=== PATIENT | male | born 1960 | race Two or more races ===

== ENCOUNTER 2018-10-06 02:24 | Emergency (ER) | payer MEDICAID, OTHER ==
[~2018-10-06] VITALS: Ht 180.3 cm; Wt 131.5 kg
[2018-10-06 02:54] VITALS: BP 156/90
[2018-10-06] MEDS ORDERED: ALBUTEROL SULF 2.5 MG/0.5ML(0.5%) NEB SOLN NEB ONE (03:15)
[2018-10-06] MEDS ORDERED: IPRATROPIUM BROM 0.5 MG/2.5ML INH SOL NEB ONE (03:15)
== END 2018-10-06 04:49 | disposition home or self-care (01) ==
LOC: ER 02:33
DX: J40 Bronchitis, not specified as acute or chronic (principal)
CPT/HCPCS: 71045; 94640; 99283; J7611; J7644

== ENCOUNTER 2019-03-02 07:43 | Emergency (ER) | payer SELFPAY ==
[~2019-03-02] VITALS: Ht 177.8 cm; Wt 131.5 kg
[2019-03-02 08:18] LABS: Basophils # (auto) 0.1 uL; Basophils % (auto) 1.1 % (0.0-2.0); Eosinophils # (auto) 0.1 uL; Eosinophils % (auto) 2.3 % (0.0-7.0); Hematocrit 45.1 % (41.0-53.0); Hemoglobin 15.4 g/dL (13.5-17.5); Lymphocytes # (auto) 1.9 uL; Lymphocytes % (auto) 29.2 % (10.0-50.0); Mean Corpuscular Hemoglobin 30.9 pg (28.0-32.0); Mean Corpuscular Hgb Conc. 34.2 g/dL (32.0-36.0); Mean Corpuscular Volume 90.6 fL (80.0-100.0); Monocytes # (auto) 0.5 uL; Monocytes % (auto) 8.4 % (0.0-12.0); Neutrophils # (auto) 3.8 uL; Nucleated Red Blood Cells % 0.1 %; Platelet Count (auto) 257 10^3/uL (140-450); Red Blood Cells 4.98 10^6/uL (4.5-5.90); Red Cell Distribution Width 13.8 % (11.8-14.3); White Blood Cell 6.4 10^3/uL (4.4-10.8)
[2019-03-02 08:41] LABS: Alanine Aminotransferase 37 U/L (16-61); Albumin 3.6 g/dL (3.4-5.0); Anion Gap 6 (5-15); Aspartate Aminotransferase 20 U/L (15-37); BUN/Creatinine Ratio 19.2; Blood Urea Nitrogen 15 mg/dL (7-18); Calcium 8.5 mg/dL (8.5-10.1); Carbon Dioxide 28 mmol/L (21-32); Chloride 106 mmol/L (98-107); GFR African American 132 mL/min; GFR Non-African American 109 mL/min; Glucose 114 mg/dL (74-106); Potassium 3.3 mmol/L (3.5-5.1); Sodium 140 mmol/L (136-145)
[2019-03-02 08:49] LABS: Urine Bacteria NONE SEEN /hpf (None Seen); Urine Blood Negative /uL (Negative); Urine Specific Gravity 1.019 (1.001-1.035); Urine WBC 1 /hpf (0 - 3)
[2019-03-02 08:51] LABS: Alkaline Phosphatase 98 U/L (45-117); Bilirubin, Total 0.8 mg/dL (0.2-1.0); Total Protein 7.5 g/dL (6.4-8.2)
[2019-03-02] MEDS ORDERED: KETOROLAC TROMETH 60MG/2ML VIAL IM ONE (09:00)
[2019-03-02] MEDS ORDERED: PANTOPRAZOLE 40 MG TAB PO ONE (09:15)
[2019-03-02 10:47] VITALS: BP 140/58
[2019-03-02] MEDS ORDERED: POTASSIUM CHL 10% (20 MEQ/15ML) 15ml ORAL SOLN PO ONE (11:00)
== END 2019-03-02 11:23 | disposition home or self-care (01) ==
LOC: ER 07:43
DX: K29.70 Gastritis, unspecified, without bleeding (principal); E87.6 Hypokalemia; E11.9 Type 2 diabetes mellitus without complications; I10 Essential (primary) hypertension
CPT/HCPCS: 36415; 74176; 80053; 81001; 84484; 85025; 93005; 99284; J1885

== ENCOUNTER 2020-01-08 06:49 | Emergency (ER) | payer MEDICAID ==
[~2020-01-08] VITALS: Ht 180.3 cm; Wt 126.1 kg
[2020-01-08 07:36] VITALS: BP 127/67
== END 2020-01-08 08:04 | disposition home or self-care (01) ==
LOC: ER 06:49
DX: J06.9 Acute upper respiratory infection, unspecified (principal); E11.9 Type 2 diabetes mellitus without complications; I10 Essential (primary) hypertension
CPT/HCPCS: 71046

== ENCOUNTER 2020-04-05 21:14 | Emergency (ER) | payer MEDICAID ==
[~2020-04-05] VITALS: Ht 180.3 cm; Wt 131.1 kg
[2020-04-06 00:44] VITALS: BP 139/74
== END 2020-04-06 00:56 | disposition home or self-care (01) ==
LOC: ER 21:15
DX: S00.03XA Contusion of scalp, initial encounter (principal); M47.812 Spondylosis without myelopathy or radiculopathy, cervical region; I10 Essential (primary) hypertension; E11.9 Type 2 diabetes mellitus without complications; X58.XXXA Exposure to other specified factors, initial encounter; Y93.89 Activity, other specified; Y99.8 Other external cause status; Y92.89 Other specified places as the place of occurrence of the external cause
CPT/HCPCS: 70450; 72125

== ENCOUNTER 2021-01-26 11:18 | Emergency (ER) | payer MEDICAID ==
[~2021-01-26] VITALS: Ht 180.3 cm; Wt 127.0 kg
[2021-01-26] MEDS ORDERED: ASPirin 81 mg TAB PO ONE (12:15)
[2021-01-26 12:29] LABS: Basophils # (auto) 0.1 10 ^3/uL (0-0.2); Basophils % (auto) 0.9 % (0.0-2.0); Eosinophils # (auto) 0.2 10 ^3/uL (0-0.8); Eosinophils % (auto) 3.4 % (0.0-7.0); Hematocrit 43.7 % (41.0-53.0); Hemoglobin 14.9 g/dL (13.5-17.5); Lymphocytes # (auto) 2.2 10 ^3/uL (0.4-5.4); Lymphocytes % (auto) 30.8 % (10.0-50.0); Mean Corpuscular Hemoglobin 31.5 pg (28.0-32.0); Mean Corpuscular Hgb Conc. 34.2 g/dL (32.0-36.0); Mean Corpuscular Volume 92.2 fL (80.0-100.0); Monocytes # (auto) 0.6 10 ^3/uL (0-1.3); Monocytes % (auto) 7.8 % (0.0-12.0); Neutrophils # (auto) 4.1 10 ^3/uL (1.6-8.6); Neutrophils % (auto) 57.1 % (37.0-80.0); Nucleated Red Blood Cells % 0.1 %; Platelet Count (auto) 260 10^3/uL (140-450); Red Blood Cells 4.74 10^6/uL (4.5-5.90); Red Cell Distribution Width 13.5 % (11.8-14.3); White Blood Cell 7.2 10^3/uL (4.4-10.8)
[2021-01-26 12:48] LABS: Albumin 3.8 g/dL (3.4-5.0); Anion Gap 1 (5-15); Blood Urea Nitrogen 14 mg/dL (7-18); Carbon Dioxide 30 mmol/L (21-32); Chloride 110 mmol/L (98-107); Glucose 89 mg/dL (74-106); Sodium 141 mmol/L (136-145)
[2021-01-26 12:53] LABS: Alanine Aminotransferase 44 U/L (16-61); Alkaline Phosphatase 85 U/L (45-117); Aspartate Aminotransferase 20 U/L (15-37); BUN/Creatinine Ratio 17.9; Bilirubin, Total 0.4 mg/dL (0.2-1.0); GFR African American 131 mL/min; GFR Non-African American 109 mL/min; Total Protein 7.5 g/dL (6.4-8.2)
[2021-01-26 13:09] LABS: INR 0.95 (0.9-1.15); Partial Thromboplastin Time 27.2 sec (23.0-31.2)
[2021-01-26 14:52] VITALS: BP 133/78
== END 2021-01-26 16:40 | disposition home or self-care (01) ==
LOC: ER 11:18
DX: R07.89 Other chest pain (principal); K29.70 Gastritis, unspecified, without bleeding; E11.9 Type 2 diabetes mellitus without complications; I10 Essential (primary) hypertension
CPT/HCPCS: 36415; 71045; 80053; 83735; 84443; 84484; 85025; 85379; 85610; 85730; 93005

== ENCOUNTER 2021-02-10 11:25 | Emergency (ER) | payer MEDICAID ==
[~2021-02-10] VITALS: Ht 180.3 cm; Wt 127.0 kg
[2021-02-10] MEDS ORDERED: ASPirin 81 mg TAB PO ONE (11:45)
[2021-02-10 12:20] LABS: Basophils # (auto) 0 10 ^3/uL (0-0.2); Basophils % (auto) 0.3 % (0.0-2.0); Eosinophils # (auto) 0.2 10 ^3/uL (0-0.8); Eosinophils % (auto) 2.6 % (0.0-7.0); Hematocrit 43.5 % (41.0-53.0); Hemoglobin 15.1 g/dL (13.5-17.5); Lymphocytes # (auto) 2.2 10 ^3/uL (0.4-5.4); Lymphocytes % (auto) 28.9 % (10.0-50.0); Mean Corpuscular Hemoglobin 31.5 pg (28.0-32.0); Mean Corpuscular Hgb Conc. 34.8 g/dL (32.0-36.0); Mean Corpuscular Volume 90.5 fL (80.0-100.0); Monocytes # (auto) 0.6 10 ^3/uL (0-1.3); Monocytes % (auto) 7.3 % (0.0-12.0); Neutrophils # (auto) 4.7 10 ^3/uL (1.6-8.6); Neutrophils % (auto) 60.9 % (37.0-80.0); Nucleated Red Blood Cells % 0.1 %; Platelet Count (auto) 258 10^3/uL (140-450); Red Blood Cells 4.81 10^6/uL (4.5-5.90); Red Cell Distribution Width 13.4 % (11.8-14.3); White Blood Cell 7.7 10^3/uL (4.4-10.8)
[2021-02-10 12:39] LABS: Albumin 3.5 g/dL (3.4-5.0); Anion Gap 6 (5-15); Blood Urea Nitrogen 9 mg/dL (7-18); Calcium 8.7 mg/dL (8.5-10.1); Carbon Dioxide 28 mmol/L (21-32); Chloride 105 mmol/L (98-107); Glucose 162 mg/dL (74-106); Magnesium 2.1 mg/dL (1.6-2.6); Potassium 3.7 mmol/L (3.5-5.1); Sodium 139 mmol/L (136-145)
[2021-02-10 12:46] LABS: Alanine Aminotransferase 40 U/L (16-61); Alkaline Phosphatase 93 U/L (45-117); Aspartate Aminotransferase 18 U/L (15-37); Bilirubin, Total 0.6 mg/dL (0.2-1.0); GFR African American 151 mL/min; GFR Non-African American 125 mL/min; Total Protein 7.3 g/dL (6.4-8.2)
[2021-02-10 14:29] VITALS: BP 124/54
== END 2021-02-10 14:41 | disposition home or self-care (01) ==
LOC: ER 11:25
DX: R07.89 Other chest pain (principal); E11.9 Type 2 diabetes mellitus without complications; I10 Essential (primary) hypertension
CPT/HCPCS: 36415; 71045; 80053; 81002; 83735; 83880; 84484; 85025; 85379; 93005; 99285; J7030

== ENCOUNTER 2021-08-01 12:41 | Emergency (ER) | payer MEDICAID ==
[~2021-08-01] VITALS: Ht 180.3 cm; Wt 127.0 kg
[2021-08-01 13:25] VITALS: BP 116/83
[2021-08-01] MEDS ORDERED: cefTRIAXone SOD 1,000 MG VL IM ONE (14:45)
[2021-08-01] MEDS ORDERED: IBUPROFEN 800 MG TAB PO ONE (14:45)
== END 2021-08-01 15:20 | disposition home or self-care (01) ==
LOC: ER 12:41
DX: S81.831A Puncture wound without foreign body, right lower leg, initial encounter (principal); E11.9 Type 2 diabetes mellitus without complications; I10 Essential (primary) hypertension; L08.89 Other specified local infections of the skin and subcutaneous tissue
CPT/HCPCS: 10060; 96372; 99283; J0696

== ENCOUNTER 2021-08-26 08:02 | Emergency (ER) | payer MEDICAID ==
[~2021-08-26] VITALS: Ht 180.3 cm; Wt 127.0 kg
[2021-08-26 09:11] LABS: Basophils # (auto) 0.1 10 ^3/uL (0-0.2); Basophils % (auto) 1.3 % (0.0-2.0); Eosinophils # (auto) 0.3 10 ^3/uL (0-0.8); Eosinophils % (auto) 4.3 % (0.0-7.0); Hematocrit 44.9 % (41.0-53.0); Hemoglobin 15.2 g/dL (13.5-17.5); Lymphocytes # (auto) 2.2 10 ^3/uL (0.4-5.4); Lymphocytes % (auto) 29.7 % (10.0-50.0); Mean Corpuscular Hemoglobin 30.3 pg (28.0-32.0); Mean Corpuscular Hgb Conc. 33.9 g/dL (32.0-36.0); Mean Corpuscular Volume 89.5 fL (80.0-100.0); Monocytes # (auto) 0.5 10 ^3/uL (0-1.3); Neutrophils # (auto) 4.2 10 ^3/uL (1.6-8.6); Neutrophils % (auto) 57.7 % (37.0-80.0); Nucleated Red Blood Cells % 0.1 %; Red Blood Cells 5.02 10^6/uL (4.5-5.90); Red Cell Distribution Width 13.5 % (11.8-14.3); White Blood Cell 7.4 10^3/uL (4.4-10.8)
[2021-08-26 09:14] LABS: Albumin 3.8 g/dL (3.4-5.0); Calcium 9.1 mg/dL (8.5-10.1); Potassium 3.9 mmol/L (3.5-5.1)
[2021-08-26 09:18] LABS: BUN/Creatinine Ratio 15.5; Bilirubin, Total 0.7 mg/dL (0.2-1.0); Total Protein 7.6 g/dL (6.4-8.2)
[2021-08-26 09:35] VITALS: BP 143/83
[2021-08-26] MEDS ORDERED: cefTRIAXone SOD 1,000 MG VL IM ONE (10:15)
== END 2021-08-26 11:16 | disposition home or self-care (01) ==
LOC: ER 08:02
DX: S81.801D Unspecified open wound, right lower leg, subsequent encounter (principal); L03.115 Cellulitis of right lower limb; I10 Essential (primary) hypertension; E11.9 Type 2 diabetes mellitus without complications; W22.8XXD Striking against or struck by other objects, subsequent encounter
CPT/HCPCS: 36415; 73700; 80053; 85025; 96372; 99284; J0696

== ENCOUNTER 2022-11-05 23:11 | Inpatient (IN) | payer MEDICAID ==
[~2022-11-05] VITALS: Ht 180.3 cm; Wt 136.0 kg
[2022-11-05] MEDS ORDERED: ASPirin 81 mg TAB PO ONE ×2 (23:30→23:45)
[2022-11-05] MEDS ORDERED: NITROGLYCERIN 0.4 MG SL TAB SL ONE (23:45)
[2022-11-05] MEDS ORDERED: CLOPIDOGREL BISULFATE 75 MG TAB PO ONE (23:45)
[2022-11-05] MEDS ORDERED: HEPARIN SODIUM (PORCINE) 5000 UNITS/ML 1ML VIAL IV ONE (23:45)
[2022-11-05 23:57] LABS: Basophils # (auto) 0.1 10 ^3/uL (0-0.2); Eosinophils # (auto) 0.2 10 ^3/uL (0-0.8); Eosinophils % (auto) 1.7 % (0.0-7.0); Hematocrit 44.7 % (41.0-53.0); Hemoglobin 14.5 g/dL (13.5-17.5); Lymphocytes # (auto) 2.5 10 ^3/uL (0.4-5.4); Lymphocytes % (auto) 22.3 % (10.0-50.0); Mean Corpuscular Hgb Conc. 32.4 g/dL (32.0-36.0); Mean Corpuscular Volume 92.3 fL (80.0-100.0); Monocytes # (auto) 0.8 10 ^3/uL (0-1.3); Monocytes % (auto) 7.1 % (0.0-12.0); Neutrophils # (auto) 7.5 10 ^3/uL (1.6-8.6); Neutrophils % (auto) 67.9 % (37.0-80.0); Red Blood Cells 4.84 10^6/uL (4.5-5.90); Red Cell Distribution Width 13.7 % (11.8-14.3); White Blood Cell 11.1 10^3/uL (4.4-10.8)
[2022-11-06] VITALS (8 sets, daily range): BP systolic 126–153; BP diastolic 63–99
[2022-11-06] MEDS ORDERED: IOHEXOL 350 MG/ML 100ML IJ ONE ×2 (00:03→01:10)
[2022-11-06] MEDS ORDERED: LIDOCAINE 2%HCL (LOCAL ANESTH.) INJ 10ml MDV ONE (00:03)
[2022-11-06 00:15] LABS: INR 0.97 (0.9-1.15); Partial Thromboplastin Time 26.5 sec (24.6-33.4)
[2022-11-06] MEDS ORDERED: ANGIOMAX 250 MG VIAL IV ONE (00:20)
[2022-11-06] MEDS ORDERED: SODIUM CHL 0.9% 0 ML ONE (00:21)
[2022-11-06] MEDS ORDERED: MIDAZOLAM HCL 2MG/2ML 2ml VIAL (1mg/ml) ONE ×2 (00:21→00:37)
[2022-11-06] MEDS ORDERED: fentaNYL CITRATE 100 MCG/2 ML VL ONE (00:21)
[2022-11-06 00:34] LABS: Albumin 3.9 g/dL (3.4-5.0); BUN/Creatinine Ratio 11.7; Calcium 9.2 mg/dL (8.5-10.1); Magnesium 1.6 mg/dL (1.6-2.6); Potassium 4.2 mmol/L (3.5-5.1)
[2022-11-06 00:37] LABS: Bilirubin, Total 1.1 mg/dL (0.2-1.0); Total Protein 7.2 g/dL (6.4-8.2)
[2022-11-06] MEDS ORDERED: METOPROLOL TARTRATE 1MG/1ML-5ML VIAL IV ONE (00:37)
[2022-11-06] MEDS ORDERED: ATROPINE SULF 1 MG/10ml SYR ONE (00:38)
[2022-11-06] MEDS ORDERED: RIVAROXABAN 20 MG TAB PO ONE (01:00)
[2022-11-06] MEDS ORDERED: MORPHINE SULFATE INJ 2 MG/ml SYRG IV PRN (01:00)
[2022-11-06] MEDS ORDERED: NITROGLYCERIN 0.4 MG SL TAB SL PRN (01:00)
[2022-11-06] MEDS ORDERED: METOPROLOL SUCCINATE XL 50 MG TAB PO ONE (01:18)
[2022-11-06] MEDS ORDERED: ONDANSETRON HCL 4 MG/2 ML VIAL IV PRN (04:00)
[2022-11-06] MEDS ORDERED: DOCUSATE SOD 100 MG CAP PO PRN (04:00)
[2022-11-06] MEDS ORDERED: HYDROcodone-ACET 5/325MG TAB PO PRN (04:00)
[2022-11-06] MEDS ORDERED: ACETAMINOPHEN 325 MG TAB PO PRN (04:00)
[2022-11-06] MEDS ORDERED: DEXTROSE (50%) 50ML SYRG IV PRN (04:00)
[2022-11-06] MEDS: SODIUM CHLOR 0.9% PF (SALINE LOCK) 10ML VIAL/SYR IV SCH ×3 (06:04→21:08)
[2022-11-06 06:21] LABS: Basophils # (auto) 0.1 10 ^3/uL (0-0.2); Basophils % (auto) 0.6 % (0.0-2.0); Eosinophils # (auto) 0 10 ^3/uL (0-0.8); Eosinophils % (auto) 0.5 % (0.0-7.0); Hematocrit 40.4 % (41.0-53.0); Hemoglobin 13.7 g/dL (13.5-17.5); Lymphocytes # (auto) 1.7 10 ^3/uL (0.4-5.4); Lymphocytes % (auto) 20.9 % (10.0-50.0); Mean Corpuscular Hemoglobin 30.9 pg (28.0-32.0); Mean Corpuscular Hgb Conc. 33.9 g/dL (32.0-36.0); Mean Corpuscular Volume 91.2 fL (80.0-100.0); Monocytes # (auto) 0.8 10 ^3/uL (0-1.3); Monocytes % (auto) 9.3 % (0.0-12.0); Neutrophils # (auto) 5.7 10 ^3/uL (1.6-8.6); Neutrophils % (auto) 68.7 % (37.0-80.0); Nucleated Red Blood Cells % 0.1 %; Red Blood Cells 4.44 10^6/uL (4.5-5.90); Red Cell Distribution Width 13.7 % (11.8-14.3); White Blood Cell 8.2 10^3/uL (4.4-10.8)
[2022-11-06] MEDS: InsuLIN REG 1unit/0.01ml Soln (100units/ml) SC SCH ×4 (06:23→21:17)
[2022-11-06] MEDS: ACCU-CHEK COMFORT CURVE STRIP VI SCH ×4 (06:24→21:08)
[2022-11-06 06:38] LABS: Calcium 8.4 mg/dL (8.5-10.1); Potassium 3.6 mmol/L (3.5-5.1)
[2022-11-06 06:45] LABS: Albumin 3.4 g/dL (3.4-5.0); Bilirubin, Total 1.8 mg/dL (0.2-1.0); Total Protein 6.6 g/dL (6.4-8.2)
[2022-11-06] MEDS: BENAZEPRIL HCL 10 MG TAB PO SCH (09:41)
[2022-11-06] MEDS: METOPROLOL SUCCINATE XL 50 MG TAB PO SCH (09:41)
[2022-11-06] MEDS ORDERED: HEPARIN SODIUM (PORCINE) 5000 UNITS/ML 1ML VIAL SC SCH (10:00)
[2022-11-06] MEDS ORDERED: POTASSIUM CHL 20 Meq TABLET PO ONE (10:30)
[2022-11-06] MEDS ORDERED: AMIODARONE HCL 200 MG TAB PO ONE (10:30)
[2022-11-06] MEDS ORDERED: PANTOPRAZOLE 40 MG TAB PO ONE (10:30)
[2022-11-06 18:52] LABS: Urine Bacteria FEW /hpf (None Seen); Urine Blood Negative /uL (Negative); Urine WBC 1 /hpf (0 - 3)
[2022-11-06] MEDS: APIXABAN 5 MG TAB PO SCH (21:07)
[2022-11-06] MEDS: AMIODARONE HCL 200 MG TAB PO SCH (21:07)
[2022-11-07] MEDS ORDERED: METO25TA93 PO (04:29)
[2022-11-07] MEDS ORDERED: HYDR25TA5 PO (04:29)
[2022-11-07] MEDS ORDERED: ENAL2.5T7 PO (04:29)
[2022-11-07] MEDS ORDERED: GLIP10TA9 PO (04:29)
[2022-11-07] MEDS ORDERED: METF-370 PO (04:29)
[2022-11-07] MEDS ORDERED: ASPI81CH49 PO (04:29)
[2022-11-07 04:43] VITALS: BP 129/87
[2022-11-07] MEDS: SODIUM CHLOR 0.9% PF (SALINE LOCK) 10ML VIAL/SYR IV SCH ×3 (05:29→21:16)
[2022-11-07] MEDS: ACCU-CHEK COMFORT CURVE STRIP VI SCH ×4 (06:29→21:15)
[2022-11-07] MEDS: InsuLIN REG 1unit/0.01ml Soln (100units/ml) SC SCH ×5 (06:31→21:15)
[2022-11-07 06:53] LABS: Basophils # (auto) 0 10 ^3/uL (0-0.2); Basophils % (auto) 0.7 % (0.0-2.0); Eosinophils # (auto) 0.2 10 ^3/uL (0-0.8); Eosinophils % (auto) 2.4 % (0.0-7.0); Hematocrit 41.9 % (41.0-53.0); Hemoglobin 14.1 g/dL (13.5-17.5); Lymphocytes # (auto) 2.1 10 ^3/uL (0.4-5.4); Lymphocytes % (auto) 31.4 % (10.0-50.0); Mean Corpuscular Hemoglobin 30.9 pg (28.0-32.0); Mean Corpuscular Hgb Conc. 33.7 g/dL (32.0-36.0); Mean Corpuscular Volume 91.9 fL (80.0-100.0); Monocytes # (auto) 0.6 10 ^3/uL (0-1.3); Monocytes % (auto) 8.9 % (0.0-12.0); Neutrophils # (auto) 3.8 10 ^3/uL (1.6-8.6); Neutrophils % (auto) 56.6 % (37.0-80.0); Nucleated Red Blood Cells % 0.1 %; Red Blood Cells 4.56 10^6/uL (4.5-5.90); Red Cell Distribution Width 13.7 % (11.8-14.3); White Blood Cell 6.6 10^3/uL (4.4-10.8)
[2022-11-07 07:04] LABS: Albumin 3.3 g/dL (3.4-5.0); Calcium 8.7 mg/dL (8.5-10.1); Magnesium 1.9 mg/dL (1.6-2.6); Potassium 3.8 mmol/L (3.5-5.1)
[2022-11-07 07:19] LABS: Bilirubin, Total 1.5 mg/dL (0.2-1.0); Total Protein 6.5 g/dL (6.4-8.2)
[2022-11-07] MEDS: APIXABAN 5 MG TAB PO SCH ×2 (08:22→21:15)
[2022-11-07] MEDS: BENAZEPRIL HCL 10 MG TAB PO SCH (08:23)
[2022-11-07] MEDS: PANTOPRAZOLE 40 MG TAB PO SCH (08:24)
[2022-11-07] MEDS: AMIODARONE HCL 200 MG TAB PO SCH ×2 (08:24→21:16)
[2022-11-07] MEDS: METOPROLOL SUCCINATE XL 50 MG TAB PO SCH (08:25)
[2022-11-07 09:00] VITALS: BP 139/87
[2022-11-07] MEDS ORDERED: METOPROLOL SUCCINATE XL 50 MG TAB PO ONE ×2 (11:00→11:15)
[2022-11-07 13:00] VITALS: BP 125/79
[2022-11-07 16:50] VITALS: BP 124/84
[2022-11-07 22:00] VITALS: BP 112/88
[2022-11-08 05:00] VITALS: BP 145/95
[2022-11-08] MEDS: InsuLIN REG 1unit/0.01ml Soln (100units/ml) SC SCH ×4 (06:27→22:02)
[2022-11-08] MEDS: ACCU-CHEK COMFORT CURVE STRIP VI SCH ×4 (06:31→22:08)
[2022-11-08] MEDS: SODIUM CHLOR 0.9% PF (SALINE LOCK) 10ML VIAL/SYR IV SCH ×3 (06:31→22:09)
[2022-11-08 07:13] LABS: Basophils # (auto) 0.1 10 ^3/uL (0-0.2); Basophils % (auto) 0.7 % (0.0-2.0); Eosinophils # (auto) 0.3 10 ^3/uL (0-0.8); Eosinophils % (auto) 3.4 % (0.0-7.0); Hematocrit 41.8 % (41.0-53.0); Hemoglobin 13.7 g/dL (13.5-17.5); Lymphocytes # (auto) 2.4 10 ^3/uL (0.4-5.4); Mean Corpuscular Hemoglobin 30.1 pg (28.0-32.0); Mean Corpuscular Hgb Conc. 32.7 g/dL (32.0-36.0); Monocytes # (auto) 0.6 10 ^3/uL (0-1.3); Monocytes % (auto) 7.3 % (0.0-12.0); Neutrophils # (auto) 4.6 10 ^3/uL (1.6-8.6); Neutrophils % (auto) 58.6 % (37.0-80.0); Nucleated Red Blood Cells % 0.1 %; Red Blood Cells 4.54 10^6/uL (4.5-5.90); Red Cell Distribution Width 13.5 % (11.8-14.3); White Blood Cell 7.9 10^3/uL (4.4-10.8)
[2022-11-08 07:29] LABS: Potassium 3.8 mmol/L (3.5-5.1)
[2022-11-08 08:15] LABS: Albumin 3.2 g/dL (3.4-5.0); BUN/Creatinine Ratio 17.7; Calcium 8.8 mg/dL (8.5-10.1); Total Protein 6.9 g/dL (6.4-8.2)
[2022-11-08 08:30] VITALS: BP 139/89
[2022-11-08] MEDS: AMIODARONE HCL 200 MG TAB PO SCH ×2 (09:22→22:09)
[2022-11-08] MEDS: APIXABAN 5 MG TAB PO SCH ×2 (09:22→22:08)
[2022-11-08] MEDS: BENAZEPRIL HCL 10 MG TAB PO SCH (09:22)
[2022-11-08] MEDS: METOPROLOL SUCCINATE XL 50 MG TAB PO SCH (09:23)
[2022-11-08] MEDS: PANTOPRAZOLE 40 MG TAB PO SCH (09:23)
[2022-11-08 13:00] VITALS: BP 151/87
[2022-11-08 17:00] VITALS: BP 157/98
[2022-11-08 22:00] VITALS: BP 157/99
[2022-11-09 05:00] VITALS: BP 151/99
[2022-11-09 05:21] LABS: Basophils # (auto) 0.1 10 ^3/uL (0-0.2); Basophils % (auto) 0.7 % (0.0-2.0); Eosinophils # (auto) 0.3 10 ^3/uL (0-0.8); Eosinophils % (auto) 3.5 % (0.0-7.0); Hematocrit 40.4 % (41.0-53.0); Hemoglobin 13.5 g/dL (13.5-17.5); Lymphocytes # (auto) 2.2 10 ^3/uL (0.4-5.4); Mean Corpuscular Hemoglobin 30.5 pg (28.0-32.0); Mean Corpuscular Hgb Conc. 33.5 g/dL (32.0-36.0); Monocytes # (auto) 0.6 10 ^3/uL (0-1.3); Monocytes % (auto) 7.2 % (0.0-12.0); Neutrophils # (auto) 4.7 10 ^3/uL (1.6-8.6); Neutrophils % (auto) 60.6 % (37.0-80.0); Red Blood Cells 4.44 10^6/uL (4.5-5.90); Red Cell Distribution Width 13.4 % (11.8-14.3); White Blood Cell 7.8 10^3/uL (4.4-10.8)
[2022-11-09 05:39] LABS: Calcium 8.5 mg/dL (8.5-10.1); Potassium 3.8 mmol/L (3.5-5.1)
[2022-11-09 05:41] LABS: Total Protein 6.5 g/dL (6.4-8.2)
[2022-11-09] MEDS: ACCU-CHEK COMFORT CURVE STRIP VI SCH ×4 (06:49→22:10)
[2022-11-09] MEDS: InsuLIN REG 1unit/0.01ml Soln (100units/ml) SC SCH ×4 (06:49→22:24)
[2022-11-09] MEDS: SODIUM CHLOR 0.9% PF (SALINE LOCK) 10ML VIAL/SYR IV SCH ×3 (06:50→22:00)
[2022-11-09 08:28] VITALS: BP 151/85
[2022-11-09] MEDS: AMIODARONE HCL 200 MG TAB PO SCH ×2 (11:25→22:00)
[2022-11-09] MEDS: APIXABAN 5 MG TAB PO SCH ×2 (11:25→22:00)
[2022-11-09] MEDS: PANTOPRAZOLE 40 MG TAB PO SCH (11:26)
[2022-11-09] MEDS: METOPROLOL SUCCINATE XL 50 MG TAB PO SCH (11:26)
[2022-11-09] MEDS: BENAZEPRIL HCL 10 MG TAB PO SCH (11:27)
[2022-11-09 12:15] VITALS: BP 134/98
[2022-11-09] MEDS ORDERED: DIGOXIN (250MCG/ML) 2 ML AMPULE IV ONE (15:15)
[2022-11-09 16:00] VITALS: BP 146/80
[2022-11-09 22:00] VITALS: BP 150/99
[2022-11-10 05:00] VITALS: BP 151/93
[2022-11-10 05:14] LABS: Basophils # (auto) 0.1 10 ^3/uL (0-0.2); Basophils % (auto) 0.9 % (0.0-2.0); Eosinophils # (auto) 0.3 10 ^3/uL (0-0.8); Eosinophils % (auto) 3.5 % (0.0-7.0); Hematocrit 41.2 % (41.0-53.0); Hemoglobin 13.8 g/dL (13.5-17.5); Lymphocytes % (auto) 23.9 % (10.0-50.0); Mean Corpuscular Hemoglobin 30.5 pg (28.0-32.0); Mean Corpuscular Hgb Conc. 33.4 g/dL (32.0-36.0); Mean Corpuscular Volume 91.2 fL (80.0-100.0); Monocytes # (auto) 0.7 10 ^3/uL (0-1.3); Monocytes % (auto) 8.5 % (0.0-12.0); Neutrophils # (auto) 5.2 10 ^3/uL (1.6-8.6); Neutrophils % (auto) 63.2 % (37.0-80.0); Red Blood Cells 4.51 10^6/uL (4.5-5.90); Red Cell Distribution Width 13.4 % (11.8-14.3); White Blood Cell 8.3 10^3/uL (4.4-10.8)
[2022-11-10 05:29] LABS: Albumin 3.2 g/dL (3.4-5.0); Calcium 8.4 mg/dL (8.5-10.1); Potassium 4.2 mmol/L (3.5-5.1)
[2022-11-10 05:33] LABS: BUN/Creatinine Ratio 14.6; Total Protein 6.7 g/dL (6.4-8.2)
[2022-11-10] MEDS: SODIUM CHLOR 0.9% PF (SALINE LOCK) 10ML VIAL/SYR IV SCH ×2 (06:00→14:00)
[2022-11-10] MEDS: ACCU-CHEK COMFORT CURVE STRIP VI SCH ×2 (06:35→11:30)
[2022-11-10] MEDS: InsuLIN REG 1unit/0.01ml Soln (100units/ml) SC SCH ×2 (06:38→12:42)
[2022-11-10 07:34] VITALS: BP 145/98
[2022-11-10] MEDS: METOPROLOL SUCCINATE XL 50 MG TAB PO SCH (09:28)
[2022-11-10] MEDS: AMIODARONE HCL 200 MG TAB PO SCH (09:28)
[2022-11-10] MEDS: PANTOPRAZOLE 40 MG TAB PO SCH (09:29)
[2022-11-10] MEDS: BENAZEPRIL HCL 10 MG TAB PO SCH (09:29)
[2022-11-10] MEDS: APIXABAN 5 MG TAB PO SCH (09:29)
[2022-11-10] MEDS ORDERED: DIGOXIN 0.125 MG TAB PO SCH (10:00)
[2022-11-10] MEDS ORDERED: DIGO1TAB48 PO (10:14)
[2022-11-10] MEDS ORDERED: APIX5TAB PO (10:14)
[2022-11-10] MEDS ORDERED: AMIO200T43 PO (10:14)
[2022-11-10] MEDS ORDERED: METO-6 PO (10:14)
[2022-11-10 11:52] VITALS: BP 138/97
== END 2022-11-10 15:14 | disposition home or self-care (01) | DRG 192 ==
LOC: ER 23:11 → TELE 11-06 00:55 → TELE-CENTR 11-06 02:43
PROVIDERS: ADMIT Internal Medicine Cardiovascular Disease; ATTEND Internal Medicine
PROC: 4A023N7 Measurement of Cardiac Sampling and Pressure, Left Heart, Percutaneous Approach (ICD-10-PCS; principal; 2022-11-06)
PROC: B211YZZ Fluoroscopy of Multiple Coronary Arteries using Other Contrast (ICD-10-PCS; 2022-11-06)
PROC: B215YZZ Fluoroscopy of Left Heart using Other Contrast (ICD-10-PCS; 2022-11-06)
PROC: B41C1ZZ Fluoroscopy of Pelvic Arteries using Low Osmolar Contrast (ICD-10-PCS; 2022-11-06)
PROC: 5A2204Z Restoration of Cardiac Rhythm, Single (ICD-10-PCS; 2022-11-06)
DX: I48.19 Other persistent atrial fibrillation (principal); D68.69 Other thrombophilia; E11.40 Type 2 diabetes mellitus with diabetic neuropathy, unspecified; E66.01 Morbid (severe) obesity due to excess calories; D72.829 Elevated white blood cell count, unspecified; G47.33 Obstructive sleep apnea (adult) (pediatric); I25.10 Atherosclerotic heart disease of native coronary artery without angina pectoris; Z20.822 Contact with and (suspected) exposure to COVID-19; I10 Essential (primary) hypertension; I45.10 Unspecified right bundle-branch block; Z83.3 Family history of diabetes mellitus; Z68.41 Body mass index [BMI] 40.0-44.9, adult
CPT/HCPCS: 36415; 71275; 75736; 80053; 81001; 82962; 83735; 83880; 84443; 84484; 85025; 85610; 85730; 87426; 92960; 93005; 93458; 96374; 99152; 99291; G0378; J1815; J2001; J2250

== ENCOUNTER 2023-06-25 14:34 | Emergency (ER) | payer MEDICAID ==
[~2023-06-25] VITALS: Ht 180.3 cm; Wt 100.0 kg
[~2023-06-25 14:34] MED LIST: AMIO200T43 PO; APIX5TAB PO; ASPI81CH49 PO; DIGO1TAB48 PO; ENAL1TAB42 PO; GLIP10TA9 PO; HYDR25TA5 PO; METF-370 PO; METO-6 PO; METO25TA93 PO
[2023-06-25 15:33] VITALS: BP 114/79; PULSE 69; RESP 18; TEMP 98.5; O2SAT 96
== END 2023-06-25 16:29 | disposition home or self-care (01) ==
LOC: ER 14:34
DX: I83.91 Asymptomatic varicose veins of right lower extremity (principal); E11.9 Type 2 diabetes mellitus without complications; I10 Essential (primary) hypertension
CPT/HCPCS: 82962

== ENCOUNTER 2023-12-11 08:58 | Inpatient (IN) | payer MEDICAID ==
[~2023-12-11] VITALS: Ht 180.3 cm; Wt 131.6 kg
[2023-12-11 09:38] LABS: Basophils # (auto) 0.1 10 ^3/uL (0-0.2); Basophils % (auto) 0.9 % (0.0-2.0); Eosinophils # (auto) 0.1 10 ^3/uL (0-0.8); Eosinophils % (auto) 1.5 % (0.0-7.0); Hematocrit 44.3 % (41.0-53.0); Hemoglobin 14.4 g/dL (13.5-17.5); Lymphocytes # (auto) 1.8 10 ^3/uL (0.4-5.4); Lymphocytes % (auto) 23.7 % (10.0-50.0); Mean Corpuscular Hemoglobin 30.2 pg (28.0-32.0); Mean Corpuscular Hgb Conc. 32.5 g/dL (32.0-36.0); Monocytes # (auto) 0.5 10 ^3/uL (0-1.3); Monocytes % (auto) 6.6 % (0.0-12.0); Neutrophils # (auto) 5.2 10 ^3/uL (1.6-8.6); Neutrophils % (auto) 67.3 % (37.0-80.0); Red Blood Cells 4.76 10^6/uL (4.5-5.90); Red Cell Distribution Width 14.5 % (11.8-14.3); White Blood Cell 7.8 10^3/uL (4.4-10.8)
[2023-12-11 10:03] LABS: Alanine Aminotransferase 27 U/L (7-40); Albumin 4.4 g/dL (3.2-4.8); Alkaline Phosphatase 82 U/L (46-116); Anion Gap 9 (5-15); Aspartate Aminotransferase 21 U/L (13-40); BUN/Creatinine Ratio 15.6 (10.0-20.0); Bilirubin, Total 1.5 mg/dL (0.2-1.0); Blood Urea Nitrogen 15 mg/dL (9-23); Calcium 9.8 mg/dL (8.5-10.1); Carbon Dioxide 28 mmol/L (20-30); Chloride 107 mmol/L (98-107); Glucose 83 mg/dL (74-106); Potassium 3.5 mmol/L (3.5-5.1); Sodium 144 mmol/L (136-145); Total Protein 6.7 g/dL (5.7-8.2)
[2023-12-11] MEDS ORDERED: ACETAMINOPHEN 325 MG TAB PO PRN (10:45)
[2023-12-11] MEDS ORDERED: DEXTROSE (50%) 50ML SYRG IV PRN (10:45)
[2023-12-11] MEDS ORDERED: ALBUTEROL SULF 2.5 MG/0.5ML(0.5%) NEB SOLN NEB PRN (11:00)
[2023-12-11 11:15] LABS: Triglycerides 105 mg/dL (< 150)
[2023-12-11 11:16] LABS: LDL Cholesterol 84 mg/dL (< 100)
[2023-12-11 11:17] LABS: Cholesterol 131 mg/dL (< 200); HDL Cholesterol 33 mg/dL (40-59)
[2023-12-11] MEDS: InsuLIN REG 1unit/0.01ml Soln (100units/ml) SC SCH ×3 (11:30→23:30)
[2023-12-11] MEDS: ACCU-CHEK COMFORT CURVE STRIP VI SCH ×3 (11:48→23:25)
[2023-12-11 12:15] LABS: COVID19 ANTIGEN SOFIA FIA NEGATIVE (NEGATIVE); Rapid Influenza A Negative (Negative); Rapid Influenza B Negative (Negative)
[2023-12-11 18:41] VITALS: PULSE 107; RESP 16; O2SAT 95
[2023-12-11 18:49] VITALS: BP 139/95; PULSE 101; RESP 16; O2SAT 97
[2023-12-11 19:30] VITALS: PULSE 109; RESP 17; O2SAT 97
[2023-12-11 21:00] VITALS: O2SAT 94
[2023-12-11] MEDS: AMIODARONE HCL 200 MG TAB PO SCH (23:29)
[2023-12-11] MEDS: APIXABAN 5 MG TAB PO SCH (23:29)
[2023-12-12] MEDS: TEMAZEPAM 15 MG CAP PO PRN (02:05)
[2023-12-12 06:10] LABS: Basophils # (auto) 0.1 10 ^3/uL (0-0.2); Basophils % (auto) 0.8 % (0.0-2.0); Eosinophils # (auto) 0.2 10 ^3/uL (0-0.8); Eosinophils % (auto) 2.8 % (0.0-7.0); Hematocrit 43.4 % (41.0-53.0); Lymphocytes # (auto) 2.5 10 ^3/uL (0.4-5.4); Lymphocytes % (auto) 29.7 % (10.0-50.0); Mean Corpuscular Hemoglobin 30.1 pg (28.0-32.0); Mean Corpuscular Hgb Conc. 32.2 g/dL (32.0-36.0); Mean Corpuscular Volume 93.3 fL (80.0-100.0); Monocytes # (auto) 0.6 10 ^3/uL (0-1.3); Monocytes % (auto) 6.8 % (0.0-12.0); Neutrophils # (auto) 5.1 10 ^3/uL (1.6-8.6); Neutrophils % (auto) 59.9 % (37.0-80.0); Nucleated Red Blood Cells % 0.1 %; Red Blood Cells 4.65 10^6/uL (4.5-5.90); Red Cell Distribution Width 14.7 % (11.8-14.3); White Blood Cell 8.5 10^3/uL (4.4-10.8)
[2023-12-12 06:14] LABS: Alanine Aminotransferase 23 U/L (7-40); Albumin 4.2 g/dL (3.2-4.8); Alkaline Phosphatase 76 U/L (46-116); Anion Gap 8 (5-15); Aspartate Aminotransferase 17 U/L (13-40); BUN/Creatinine Ratio 18.5 (10.0-20.0); Blood Urea Nitrogen 15 mg/dL (9-23); Calcium 9.3 mg/dL (8.7-10.4); Carbon Dioxide 29 mmol/L (20-30); Chloride 105 mmol/L (98-107); Glucose 101 mg/dL (74-106); Potassium 3.9 mmol/L (3.5-5.1); Sodium 142 mmol/L (136-145)
[2023-12-12 06:15] LABS: Bilirubin, Total 1.7 mg/dL (0.2-1.0); Total Protein 6.6 g/dL (5.7-8.2)
[2023-12-12] MEDS: ACCU-CHEK COMFORT CURVE STRIP VI SCH ×4 (06:45→22:00)
[2023-12-12] MEDS: InsuLIN REG 1unit/0.01ml Soln (100units/ml) SC SCH ×4 (06:45→22:30)
[2023-12-12 07:21] VITALS: PULSE 110; RESP 16; O2SAT 96
[2023-12-12] MEDS: APIXABAN 5 MG TAB PO SCH ×2 (09:56→22:30)
[2023-12-12] MEDS: AMIODARONE HCL 200 MG TAB PO SCH ×2 (09:57→22:30)
[2023-12-12] MEDS ORDERED: DIGOXIN 0.125 MG TAB PO SCH (10:00)
[2023-12-12] MEDS ORDERED: LORazepam 0.5 MG TAB PO PRN (10:00)
[2023-12-12] MEDS ORDERED: hydroCHLOROthiazide 25 MG TAB PO SCH (10:00)
[2023-12-12] MEDS: ENALAPRIL MALEATE 2.5 MG TAB PO SCH (10:00)
[2023-12-12] MEDS: METOPROLOL SUCCINATE XL 50 MG TAB PO SCH (10:00)
[2023-12-12] MEDS ORDERED: traMADol HCL 50 MG TAB PO PRN (10:00)
[2023-12-12] MEDS ORDERED: ENOXAPARIN SOD 40 MG/0.4 ML SYRINGE SC SCH (10:00)
[2023-12-12] MEDS ORDERED: ACETAMINOPHEN 500 MG TAB PO PRN (10:00)
[2023-12-12] MEDS ORDERED: ASPirin 81 mg TAB PO SCH ×2 (10:00)
[2023-12-12] MEDS ORDERED: SPIRONOLACTONE 25 MG TAB PO ONE (10:15)
[2023-12-12] MEDS ORDERED: IOHEXOL 350 MG/ML 100ML IJ ONE (10:29)
[2023-12-12] MEDS: FUROSEMIDE 40 MG/4 ML VIAL IV SCH ×2 (10:54→22:30)
[2023-12-12] MEDS: POTASSIUM CHL 20 Meq TABLET PO SCH (10:55)
[2023-12-12] MEDS: DIGOXIN 0.125 MG TAB PO SCH (10:56)
[2023-12-12 13:24] VITALS: O2SAT 95
[2023-12-12] MEDS ORDERED: ENAL1TAB42 PO (14:04)
[2023-12-12 19:41] VITALS: O2SAT 95
[2023-12-12 19:59] VITALS: PULSE 101; RESP 12; O2SAT 96
[2023-12-13] VITALS (9 sets, daily range): BP systolic 122–152; BP diastolic 73–105; PULSE 83–121; RESP 16–22; TEMP 97.5–98.6; O2SAT 95–98
[2023-12-13 06:45] LABS: Basophils # (auto) 0.1 10 ^3/uL (0-0.2); Basophils % (auto) 1.2 % (0.0-2.0); Eosinophils # (auto) 0.2 10 ^3/uL (0-0.8); Hematocrit 42.9 % (41.0-53.0); Hemoglobin 14.1 g/dL (13.5-17.5); Lymphocytes # (auto) 2.5 10 ^3/uL (0.4-5.4); Lymphocytes % (auto) 31.9 % (10.0-50.0); Mean Corpuscular Hemoglobin 30.2 pg (28.0-32.0); Mean Corpuscular Hgb Conc. 32.9 g/dL (32.0-36.0); Mean Corpuscular Volume 91.8 fL (80.0-100.0); Monocytes # (auto) 0.6 10 ^3/uL (0-1.3); Monocytes % (auto) 7.5 % (0.0-12.0); Neutrophils # (auto) 4.5 10 ^3/uL (1.6-8.6); Neutrophils % (auto) 56.4 % (37.0-80.0); Nucleated Red Blood Cells % 0.1 %; Red Blood Cells 4.67 10^6/uL (4.5-5.90); Red Cell Distribution Width 14.4 % (11.8-14.3); White Blood Cell 7.9 10^3/uL (4.4-10.8)
[2023-12-13] MEDS: InsuLIN REG 1unit/0.01ml Soln (100units/ml) SC SCH ×4 (07:00→21:49)
[2023-12-13 07:03] LABS: Alanine Aminotransferase 20 U/L (7-40); Albumin 4.3 g/dL (3.2-4.8); Alkaline Phosphatase 76 U/L (46-116); Anion Gap 6 (5-15); Aspartate Aminotransferase 16 U/L (13-40); BUN/Creatinine Ratio 12.4 (10.0-20.0); Blood Urea Nitrogen 12 mg/dL (9-23); Calcium 9.2 mg/dL (8.5-10.1); Carbon Dioxide 31 mmol/L (20-30); Chloride 105 mmol/L (98-107); Cholesterol 123 mg/dL (< 200); Glucose 123 mg/dL (74-106); HDL Cholesterol 28 mg/dL (40-59); LDL Cholesterol 80 mg/dL (< 100); Potassium 3.7 mmol/L (3.5-5.1); Sodium 142 mmol/L (136-145); Triglycerides 94 mg/dL (< 150)
[2023-12-13 07:04] LABS: Bilirubin, Total 1.7 mg/dL (0.2-1.0); Total Protein 6.8 g/dL (5.7-8.2)
[2023-12-13] MEDS: ACCU-CHEK COMFORT CURVE STRIP VI SCH ×4 (07:04→22:11)
[2023-12-13] MEDS: ENALAPRIL MALEATE 2.5 MG TAB PO SCH (10:26)
[2023-12-13] MEDS: AMIODARONE HCL 200 MG TAB PO SCH ×2 (10:27→21:52)
[2023-12-13] MEDS: APIXABAN 5 MG TAB PO SCH ×2 (10:27→21:52)
[2023-12-13] MEDS: DIGOXIN 0.125 MG TAB PO SCH (10:28)
[2023-12-13] MEDS: METOPROLOL SUCCINATE XL 50 MG TAB PO SCH (10:28)
[2023-12-13] MEDS: POTASSIUM CHL 20 Meq TABLET PO SCH (10:28)
[2023-12-13] MEDS: FUROSEMIDE 40 MG/4 ML VIAL IV SCH ×2 (10:29→22:11)
[2023-12-13] MEDS: SPIRONOLACTONE 25 MG TAB PO SCH (10:33)
[2023-12-13 12:32] LABS: Urine WBC None Seen /hpf (0 - 3)
[2023-12-13 12:47] LABS: Urine Bacteria FEW /hpf (None Seen); Urine Blood Negative /uL (Negative); Urine Clarity Clear (Clear); Urine Protein, UAD Negative (Negative); Urine Specific Gravity 1.006 (1.001-1.035); Urine Urobilinogen Normal (Negative); Urine pH 7.5 (5.0-8.0)
[2023-12-13 12:54] LABS: Amphetamine Screen, Urine Neg (NEGATIVE); Barbiturate Scree,Urine Neg (NEGATIVE); Benzodiazephine Screen, Urine Neg (NEGATIVE)
[2023-12-13 12:55] LABS: Cannabinoid Screen, Urine Neg (NEGATIVE); Cocaine Screen, Urine Neg (NEGATIVE); Opiate Scree,Urine Neg (NEGATIVE); Phencyclidine Screen, Urine Neg (NEGATIVE); Urine Color Yellow (Yellow)
[2023-12-13] MEDS: TEMAZEPAM 15 MG CAP PO PRN (22:08)
[2023-12-14 05:00] VITALS: BP 116/78; PULSE 103; RESP 18; TEMP 98.4; O2SAT 93
[2023-12-14 06:14] LABS: Basophils # (auto) 0.1 10 ^3/uL (0-0.2); Eosinophils # (auto) 0.2 10 ^3/uL (0-0.8); Hematocrit 44.8 % (41.0-53.0); Hemoglobin 14.9 g/dL (13.5-17.5); Lymphocytes # (auto) 2.5 10 ^3/uL (0.4-5.4); Lymphocytes % (auto) 29.9 % (10.0-50.0); Mean Corpuscular Hemoglobin 30.6 pg (28.0-32.0); Mean Corpuscular Hgb Conc. 33.2 g/dL (32.0-36.0); Mean Corpuscular Volume 92.1 fL (80.0-100.0); Monocytes # (auto) 0.7 10 ^3/uL (0-1.3); Neutrophils # (auto) 4.8 10 ^3/uL (1.6-8.6); Neutrophils % (auto) 58.1 % (37.0-80.0); Nucleated Red Blood Cells % 0.2 %; Red Blood Cells 4.87 10^6/uL (4.5-5.90); Red Cell Distribution Width 14.2 % (11.8-14.3); White Blood Cell 8.2 10^3/uL (4.4-10.8)
[2023-12-14] MEDS: ACCU-CHEK COMFORT CURVE STRIP VI SCH ×2 (06:26→11:30)
[2023-12-14 06:35] LABS: Anion Gap 9 (5-15); Carbon Dioxide 29 mmol/L (20-30); Chloride 104 mmol/L (98-107); Potassium 4.3 mmol/L (3.5-5.1); Sodium 142 mmol/L (136-145)
[2023-12-14 06:36] LABS: Calcium 9.4 mg/dL (8.5-10.1)
[2023-12-14 06:40] LABS: Glucose 111 mg/dL (74-106)
[2023-12-14 06:41] LABS: BUN/Creatinine Ratio 12.9 (10.0-20.0); Blood Urea Nitrogen 12 mg/dL (9-23)
[2023-12-14] MEDS: InsuLIN REG 1unit/0.01ml Soln (100units/ml) SC SCH ×2 (07:00→11:30)
[2023-12-14 08:00] VITALS: PULSE 100; PULSE 104; RESP 16; O2SAT 96
[2023-12-14 09:00] VITALS: BP 127/76; PULSE 97; RESP 22; TEMP 98; O2SAT 100
[2023-12-14] MEDS: POTASSIUM CHL 20 Meq TABLET PO SCH (09:06)
[2023-12-14] MEDS: AMIODARONE HCL 200 MG TAB PO SCH (09:08)
[2023-12-14] MEDS: APIXABAN 5 MG TAB PO SCH (09:08)
[2023-12-14] MEDS: SPIRONOLACTONE 25 MG TAB PO SCH (09:09)
[2023-12-14] MEDS: ENALAPRIL MALEATE 2.5 MG TAB PO SCH (09:10)
[2023-12-14] MEDS: FUROSEMIDE 40 MG/4 ML VIAL IV SCH (09:10)
[2023-12-14] MEDS: DIGOXIN 0.125 MG TAB PO SCH (09:11)
[2023-12-14] MEDS: METOPROLOL SUCCINATE XL 50 MG TAB PO SCH (09:11)
[2023-12-14] MEDS ORDERED: FURO1TAB31 PO (10:10)
[2023-12-14] MEDS ORDERED: POTA-180 PO (10:10)
[2023-12-14] MEDS ORDERED: DIGO0.12 PO (10:10)
[2023-12-14 11:09] VITALS: BP 119/74; PULSE 86; RESP 16; TEMP 36.9; O2SAT 98
[2023-12-17] MEDS ORDERED: METO25TA5 PO (11:37)
[2023-12-17] MEDS ORDERED: HYDR25TA5 PO (13:53)
== END 2023-12-14 12:10 | disposition home or self-care (01) | DRG 194 ==
LOC: ER 08:58 → OVERFLOW 10:50 → TELE-CENTR 12-12 22:40
PROVIDERS: ADMIT Nurse Practitioner Family; ATTEND Internal Medicine
DX: I11.0 Hypertensive heart disease with heart failure (principal); J96.01 Acute respiratory failure with hypoxia; D68.69 Other thrombophilia; I50.43 Acute on chronic combined systolic (congestive) and diastolic (congestive) heart failure; I48.19 Other persistent atrial fibrillation; E66.01 Morbid (severe) obesity due to excess calories; E11.9 Type 2 diabetes mellitus without complications; I45.10 Unspecified right bundle-branch block; I16.1 Hypertensive emergency; Z20.822 Contact with and (suspected) exposure to COVID-19; E78.5 Hyperlipidemia, unspecified; G47.33 Obstructive sleep apnea (adult) (pediatric); I25.10 Atherosclerotic heart disease of native coronary artery without angina pectoris; Z68.41 Body mass index [BMI] 40.0-44.9, adult; I25.2 Old myocardial infarction; Z79.899 Other long term (current) drug therapy; Z82.49 Family history of ischemic heart disease and other diseases of the circulatory system; Z83.3 Family history of diabetes mellitus
CPT/HCPCS: 36415; 71045; 71275; 80048; 80053; 80061; 80162; 80307; 81001; 82962; 83036; 83880; 84443; 84484; 85025; 85379; 87426; 87804; 93005; 93306; 94640; 96374; 99291; G0378; J1815

== ENCOUNTER 2023-12-20 06:36 | Day surgery (SDC) | payer MEDICAID ==
[~2023-12-20] VITALS: Ht 180.3 cm; Wt 132.4 kg
[~2023-12-20 06:36] MED LIST changes: +DIGO0.12 PO; -DIGO1TAB48 PO; +FURO1TAB31 PO; -METO-6 PO; +METO25TA5 PO; -METO25TA93 PO; +POTA-180 PO
[2023-12-20] MEDS ORDERED: fentaNYL CITRATE 100 MCG/2 ML VL IV ONE (08:30)
[2023-12-20] MEDS ORDERED: MIDAZOLAM HCL 2MG/2ML 2ml VIAL (1mg/ml) IV ONE (08:30)
[2023-12-20] MEDS ORDERED: diphenhdrAMINE HCL 50 MG/1 ML VL IV ONE (08:30)
[2023-12-20] MEDS ORDERED: LIDOCAINE VISCOUS 2% 15ML UD PO ONE (08:30)
== END 2023-12-20 11:50 | disposition home or self-care (01) ==
LOC: CATH 06:36
PROVIDERS: ATTEND Internal Medicine
DX: I48.91 Unspecified atrial fibrillation (principal); I08.1 Rheumatic disorders of both mitral and tricuspid valves; E11.9 Type 2 diabetes mellitus without complications; I10 Essential (primary) hypertension; Z82.49 Family history of ischemic heart disease and other diseases of the circulatory system; Z83.3 Family history of diabetes mellitus; Z79.82 Long term (current) use of aspirin; Z72.89 Other problems related to lifestyle; Z79.84 Long term (current) use of oral hypoglycemic drugs; Z79.899 Other long term (current) drug therapy; Z98.890 Other specified postprocedural states
CPT/HCPCS: 92960; 93312; J1200; J2250; J3010; 99152

== ENCOUNTER 2025-07-19 09:07 | Emergency (ER) | payer MEDICAID ==
[~2025-07-19] VITALS: Ht 180.3 cm; Wt 121.4 kg
--- NOTE | 2025-07-19 10:00 | ED.PDOC ---
Justice. trauma (HPI) HPI Comments A 65 YEAR OLD MALE PRESENTS TO THE ED WITH COMPLAINT OF CHEST WALL PAIN S/P FALL. PATIENT STATES HE WAS WALKING IN HIS YARD 2 WEEKS AGO AND HE ACCIDENTALLY TRIPPED AND FELL FORWARD. PATIENT REPORTS HE HIT HIS CHEST WALL ON THE ROCKS ON THE GROUND. PATIENT STATES HE IS NOW EXPERIENCING CHEST WALL PAIN SINCE THIS INJURY. PATIENT NOTES HE HAS A HISTORY OF AN DE IN THE PAST AND WOULD LIKE A CARDIAC WORK UP DONE TODAY TO MAKE SURE HIS HEART IS OKAY. PATIENT DENIES HEAD INJURY, NECK INJURY, LOC, FEVER, CHILLS, SHORTNESS OF BREATH, ABDOMINAL PAIN, NAUSEA, VOMITING, HEADACHE, OR OTHER COMPLAINTS. NO OTHER SYMPTOMS OR MODIFYING FACTORS AT THIS TIME. PATIENT IS ALERT, ORIENTED X 4, AND HAS STEADY GAIT. Chief Complaint: Chest Wall Injury Time Seen by MD: 09:19 Primary Care Provider: CHAN Reviewed notes: Nurses Notes, Medications, Allergies Allergies: Coded Allergies: NO KNOWN ALLERGIES (Unverified , 12/17/23) Home Meds Active Scripts Acetaminophen (Tylenol Extra Strength Fo) 500 Mg Tab, 1000 MG PO BID, #30 TAB Prov:BRAYAN RODRIGUEZ 07/19/25 Potassium Chloride (Potassium Chloride ER) 20 Meq Tab, 20 MEQ PO DAILY for 30 Days, #30 TAB 3 Refills Prov:JASON ROGER MD 12/14/23 Furosemide (Lasix) 40 Mg Tab, 40 MG PO QAM for 30 Days, #30 TAB 3 Refills Prov:JASON ROGER MD 12/14/23 Digoxin (Digoxin) 125 Mcg Tab, 125 MCG PO DAILY for 30 Days, #30 TAB Prov:JASON ROGER MD 12/14/23 Amiodarone HCl (Amiodarone Hydrocloride) 200 Mg Tab, 200 MG PO BID for 30 Days, #60 TAB 3 Refills Prov:JASON ROGER MD 11/10/22 Apixaban Base (ELIQUIS) 5 Mg Tab, 5 MG PO BID for 30 Days, #60 TAB 3 Refills Prov:JASON ROGER MD 11/10/22 Reported Medications Hctz (Hydrochlorothiazide) 25 Mg Tab, 25 MG PO BS for edema/htn, TAB 12/17/23 Metoprolol Tartrate (Metoprolol Tartrate) 25 Mg Tab, 25 MG PO BID for htn for 30 Days, MG 12/17/23 Enalapril Maleate (Enalapril Maleate) 2.5 Mg Tab, 10 MG PO DAILY, MG 11/07/22 Glipizide (Glipizide) 10 Mg Tab, 10 MG PO DAILY, MG 11/07/22 Metformin Hydrochloride (Metformin Hcl) 500 Mg Tab, 1000 MG PO DAILY, MG 11/07/22 Aspirin (Aspirin) 81 Mg Chw, 81 MG PO DAILY, TAB.CHEW 11/07/22 Information Source: Patient Mode of Arrival: Ambulatory Severity: Mild Timing: Weeks Duration: Since onset, Intermittent Prehospital treatment: None Location: Chest (CHEST WALL) Location of laceration: None Mechanism: Fall Associated signs and symtoms: None Past Medical History PAST MEDICAL HISTORY: AFIB, DM, HTN, DE Surgical History: Denies all surgeries Family History Family History: Reviewed,noncontributory to illness, Family hx of DM, Family hx of heart zachary Social History Smoker: Non-Smoker Alcohol: Rarely Drugs: Denies Drug Use Lives In: Home Constitutional: denies: chills, diaphoresis, fatigue, fever, malaise, sweats, weakness, others EENTM: denies: blurred vision, double vision, ear bleeding, ear discharge, ear drainage, ear pain, ear ringing, eye pain, eye redness, hearing loss, mouth pain, mouth swelling, nasal discharge, nose bleeding, nose congestion, nose pain, photophobia, tearing, throat pain, throat swelling, voice changes, others Respiratory: denies: cough, hemoptysis, orthopnea, SOB at rest, shortness of breath, SOB with excertion, stridor, wheezing, others Cardiovascular: reports: others (CHEST WALL PAIN ); denies: chest pain, dizzy spells, diaphoresis, Dyspnea on exertion, edema, irregular heart beat, left arm pain, lightheadedness, palpitations, PND, syncope Gastrointestinal: denies: abdomen distended, abdominal pain, blood streaked bowels, constipated, diarrhea, dysphagia, difficulty swallowing, hematemesis, melena, nausea, poor appetite, poor fluid intake, rectal bleeding, rectal pain, vomiting, others Genitourinary: denies: burning, dysuria, flank pain, frequency, hematuria, incontinence, penile discharge, penile sore, pain, testicle pain, testicle swelling, urgency, others Neurological: denies: dizziness, fainting, headache, left sided numbness, left sided weakness, numbness, paresthesia, pre-existing deficit, right sided numbness, right sided weakness, seizure, speech problems, tingling, tremors, weakness, others Musculoskeletal: reports: others (CHEST WALL PAIN); denies: back pain, gout, joint pain, joint swelling, muscle pain, muscle stiffness, neck pain Integumetry: denies: bruises, change in color, change in hair/nails, dryness, laceration, lesions, lumps, rash, wounds, others Allergic/Immunocompromised: denies: Difficulty Healing, Frequent Infections, Hives, Itching, others Hematologic/Lymphatic: denies: anemia, blood clots, easy bleeding, easy bruising, swollen glands, others Endocrine: denies: excessive hunger, excessive sweating, excessive thirst, excessive urination, flushing, intolerance to cold, intolerance to heat, unexplained weight gain, unexplained weight loss, others Psychiatric: denies: anxiety, bipolar disorder, depression, hopeless, panic disorder, schizophrenia, sleepless, suicidal, others All Other Systems: Reviewed and Negative Physical Exam General Appearance: Obese HEENT: Normal ENT Inspection, PERRL/EOMI, Pharynx Normal, TMs Normal Neck: Full Range of Motion, Non-Tender, Normal, Normal Inspection Respiratory: Lungs Clear, No Accessory Muscle Use, No Respiratory Distress, Nor mal Breath Sounds, Other (TENDERNESS UPPER CHEST WALL, NO REDNESS, SWELLING AND DEFORMITY. ) Cardiovascular: No Edema, No JVD, No Murmur, No Gallop, Normal Peripheral Pulses, Regular Rate/Rhythm Breast Exam: Deferred Gastrointestinal: No Organomegaly, Non Tender, No Pulsatile Mass, Normal Bowel Sounds, Soft Genitalia: Deferred Pelvic: Deferred Rectal: Deferred Extremities: No calf tenderness, Normal capillary refill, Normal inspection, Normal range of motion, Non-tender, No pedal edema Musculoskeletal : Location: Bilateral Extremity Location: Chest Apperance: Tenderness (UPPER CHEST WALL, NO BONY TENDERNESS, SWELLING AND DEFORMITY. ) Neurologic: Alert, instrumentation technician II-XII nml as Tested, No Motor Deficits, Normal Affect, Normal Mood, No Sensory Deficits Cerebellar Function: Normal Reflexes: Normal Skin: Dry, Normal Color, Warm Peripheral Pulses: 2+ carotid (R), 2+ carotid (L) Lymphatic: No Adenopathy Was a procedure done? Was a procedure done?: No EKG EKG : Pulse Rate (adult): 64 [place]: Normal Cardiac Rhythm: NSR Block: None Hypertrophy: None ST: Normal Differential Diagnosis Multiple Trauma: Fractures, Abrasions, Contusion, Other (CHEST WALL MUSCLE STRAIN, INTERCOSTAL MUSCLE STRAIN) Neck Injury: N/A X-Ray, Labs, Meds, VS Vital Signs Date Time Temp Pulse Resp B/P (MAP) Pulse Ox O2 Delivery O2 Flow Rate FiO2 07/19/25 10:37 64 07/19/25 10:36 64 07/19/25 09:09 98.0 67 13 166/86 96 98.0 Lab Test 07/19/25 09:45 Range/Units White Blood Count 7.1 4.4-10.8 10^3/uL Red Blood Count 4.69 4.5-5.90 10^6/uL Hemoglobin 14.6 13.5-17.5 g/dL Hematocrit 43.1 41.0-53.0 % Mean Corpuscular Volume 91.9 80.0-100.0 fL Mean Corpuscular Hemoglobin 31.0 28.0-32.0 pg Mean Corpuscular Hemoglobin Concent 33.8 32.0-36.0 g/dL Red Cell Distribution Width 14.4 H 11.8-14.3 % Platelet Count 287 140-450 10^3/uL Mean Platelet Volume 8.1 6.9-10.8 fL Neutrophils (%) (Auto) 62.6 37.0-80.0 % Lymphocytes (%) (Auto) 28.3 10.0-50.0 % Monocytes (%) (Auto) 5.9 0.0-12.0 % Eosinophils (%) (Auto) 2.0 0.0-7.0 % Basophils (%) (Auto) 1.2 0.0-2.0 % Neutrophils # (Auto) 4.4 1.6-8.6 10 ^3/uL Lymphocytes # (Auto) 2.0 0.4-5.4 10 ^3/uL Monocytes # (Auto) 0.4 0-1.3 10 ^3/uL Eosinophils # (Auto) 0.1 0-0.8 10 ^3/uL Basophils # (Auto) 0.1 0-0.2 10 ^3/uL Nucleated Red Blood Cells 0.0 % Sodium Level 143 136-145 mmol/L Potassium Level 3.4 L 3.5-5.1 mmol/L Chloride Level 105 98-107 mmol/L Carbon Dioxide Level 28 20-31 mmol/L Anion Gap 10 5-15 Blood Urea Nitrogen 12 9-23 mg/dL Creatinine 0.86 0.700-1.30 mg/dL Glomerular Filtration Rate Calc 97 >90 mL/min BUN/Creatinine Ratio 14.0 10.0-20.0 Serum Glucose 135 H 74-106 mg/dL Calcium Level 9.1 8.7-10.4 mg/dL Troponin I High Sensitivity 3 L </=54 ng/L XY CHEST TWO VIEWS ROUTINE, HISTORY: FALL X 2 WEEKS AGO COMPARISON: XY CHEST PORTABLE on DOS: 03/12/24, XY CHEST PORTABLE on DOS: 12/11/23, CHEST PORTABLE on DOS: 11/05/22 XY CHEST PORTABLE on DOS: 03/12/24, XY CHEST PORTABLE on DOS: 12/11/23, CHEST PORTABLE on DOS: 11/05/22 TECHNICAL DATA: 2 view of the chest was obtained. FINDINGS: Lines and tubes: None Cardiomediastinal silhouette: normal Pulmonary vasculature: normal Lung expansion: normal Lung airspace: normal Lung interstitium: normal Pleura: normal Pneumothorax: no Bones: Unremarkable Other: no IMPRESSION: No acute intrathoracic abnormality. ATED BY: KELTON LEACH MD DICTATED DATE/TIME: 07/19/25 1002 SIGNED BY: KELTON LEACH MD SIGNED DATE/TIME: 07/19/25 1002 CC: X-Ray, Labs, Meds, VS Comment EXTERNAL MEDICAL RECORDS REVIEWED: [NONE] INDEPENDENT HISTORIANS: [NONE] SOCIAL DETERMINANTS OF HEALTH: [NONE] LABS ORDERED: CBC, BMP, TROPONIN REVIEWED AND INTERPRETED RESULTS: NORMAL IMAGING ORDERED: XR CHEST TREATMENTS ORDERED: NONE PROCEDURES PERFORMED: NONE CRITICAL CARE TIME: NONE I HAVE DISCUSSED THE PATIENT WITH THE ATTENDING PHYSICIAN ROBIN AND HE AGREES WITH THE PATIENT'S PLAN OF CARE AND DISPOSITION. BASED ON HISTORY OF PRESENT ILLNESS, AND PHYSICAL EXAM, PATIENT WILL BE DISCHARGED HOME. DISCUSSED PLAN FOR DISCHARGE HOME WITH RX [TYLENOL [id number] ]. MEDICATION WARNINGS GIVEN. SHARED DECISION MAKING: DISCUSSED WITH PATIENT THAT THEIR WORKUP WAS NORMAL. PATIENT INSTRUCTED TO FOLLOW UP WITH PRIMARY CARE PROVIDER IN 1-2 DAYS FOR RE- EVALUATION OF SYMPTOMS. PATIENT VERBALIZES UNDERSTANDING TO RETURN TO ED FOR NEW OR WORSENING SYMPTOMS OR IF FOLLOW UP WITH PCP CANNOT BE OBTAINED. PATIENT FEELS COMFORTABLE GOING HOME AT THIS TIME. ALL QUESTIONS ADDRESSED AT TIME OF DISCHARGE. Images Reviewed?: Images reviewed and evaluated by me Time of 1ST Reevaluation: 10:43 Reevaluation 1ST: Improved Patient Education/Counseling: Diagnosis, Treatment, Need For Follow Up Family Education/Counseling: Diagnosis, Treatment, Need For Follow Up Medical Screening: No EMC Exist At This Time Departure 1 Departure Time of Disposition: 10:44 Impression: Primary Impression: Chest wall muscle strain Qualified Codes: S29.011A - Strain of muscle and tendon of front wall of thorax, initial encounter Additional Impression: Status post fall Disposition: 01 HOME / SELF CARE / HOMELESS Condition: Stable Additional Instructions: FOLLOW-UP WITH PCP IN 1 TO 2 DAYS. TAKE MEDICATIONS PRESCRIBED. RETURN TO ED FOR ANY NEW OR WORSENING SYMPTOMS. e-Prescriptions Acetaminophen (Tylenol Extra Strength Fo) 500 Mg Tab 1000 MG PO BID, #30 TAB Prov: BRAYAN RODRIGUEZ 07/19/25 Discharged With: Self Critical Care Note Critical Care Time?: No Stability Stability form required: No I personally scribed for BRAYAN RODRIGUEZ ([email or web address]) on 07/19/25 at 10:00. Electronically submitted by Justin De Los Santos (Mine). I personally scribed for BRAYAN RODRIGUEZ ([email or web address]) on 07/19/25 at 10:23. Electronically submitted by Justin De Los Santos (Mine). I personally scribed for BRAYAN RODRIGUEZ ([email or web address]) on 07/19/25 at 10:37. Electronically submitted by Justin De Los Santos (Mine). BRAYAN RODRIGUEZ Jul 19, 2025 10:00
--- NOTE | 2025-07-19 10:04 | DVH ---
XY CHEST TWO VIEWS ROUTINE, HISTORY: FALL X 2 WEEKS AGO COMPARISON: XY CHEST PORTABLE on DOS: 03/12/24, XY CHEST PORTABLE on DOS: 12/11/23, CHEST PORTABLE on D OS: 11/05/22 XY CHEST PORTABLE on DOS: 03/12/24, XY CHEST PORTABLE on DOS: 12/11/23, CHEST PORTABLE on DOS: 11/05/22 TECHNICAL DATA: 2 view of the chest was obtained. FINDINGS: Lines and tubes: None Cardiomediastinal silhouette: normal Pulmonary vasculature: normal Lung expansion: normal Lung airspace: normal Lung interstitium: normal Pleura: normal Pneumothorax: no Bones: Unremarkable Other: no IMPRESSION: No acute intrathoracic abnormality.
[2025-07-19 10:05] LABS: Hematocrit 43.1 % (41.0-53.0); Hemoglobin 14.6 g/dL (13.5-17.5); Mean Corpuscular Hemoglobin 31.0 pg (28.0-32.0); Mean Corpuscular Volume 91.9 fL (80.0-100.0); Nucleated Red Blood Cells % 0.0 %
[2025-07-19 10:11] LABS: Chloride 105 mmol/L (98-107); Sodium 143 mmol/L (136-145)
[2025-07-19 10:12] LABS: Anion Gap 10 (5-15); Calcium 9.1 mg/dL (8.7-10.4); Carbon Dioxide 28 mmol/L (20-31); Potassium 3.4 mmol/L (3.5-5.1)
[2025-07-19 10:17] LABS: BUN/Creatinine Ratio 14.0 (10.0-20.0); Blood Urea Nitrogen 12 mg/dL (9-23); Glucose 135 mg/dL (74-106)
[2025-07-19] MEDS ORDERED: ACET-1304 PO (10:43)
[2025-07-19 10:46] VITALS: BP 140/78; PULSE 67; RESP 16; TEMP 98.3; O2SAT 96
--- NOTE | 2025-07-19 18:45 | ECG ---
[facility] Test Date: 2025-07-19 Test Time: 10:36:04 Pat Name: JASON JAMESON Department: ED Room: Gender: M Veterinary Receptionist: valencia : [id number] Requested By: BRAYAN RODRIGUEZ Order Number: [id number] Reading MD: Measurements Intervals [place] Rate: 64 P: -28 [place]: 204 QRS: -85 QRSD: 180 T: 6 QT: 465 QTc: 480 Interpretive Statements Sinus rhythm RBBB and LAFB Please click the below link to view image of tracing.
== END 2025-07-19 10:50 | disposition home or self-care (01) ==
LOC: ER 09:07
DX: S29.011A Strain of muscle and tendon of front wall of thorax, initial encounter (principal); I48.91 Unspecified atrial fibrillation; I10 Essential (primary) hypertension; E11.9 Type 2 diabetes mellitus without complications; Z79.899 Other long term (current) drug therapy; W01.0XXA Fall on same level from slipping, tripping and stumbling without subsequent striking against object, initial encounter; Y93.89 Activity, other specified; Y92.89 Other specified places as the place of occurrence of the external cause; Y99.8 Other external cause status
CPT/HCPCS: 36415; 71046; 80048; 84484; 85025; 93005